=== PATIENT | male | born 1985 | race Caucasian/White ===

== ENCOUNTER 2024-12-16 18:45 | Emergency (ER) | payer OTHER | END 2024-12-16 19:41 | disposition left against medical advice (07) | LOC: ER 18:45 | DX: S06.0X0A Concussion without loss of consciousness, initial encounter (principal); Z53.21 Procedure and treatment not carried out due to patient leaving prior to being seen by health care provider; Y08.89XA Assault by other specified means, initial encounter; Y93.89 Activity, other specified; Y92.89 Other specified places as the place of occurrence of the external cause; Y99.8 Other external cause status ==